=== PATIENT | male | born 1930 | race Asian ===

== ENCOUNTER → 2019-04-03 | Outpatient (CLI) | payer OTHER | END | disposition home or self-care (01) | LOC: ROC 07:21 | PROVIDERS: ATTEND Radiology Radiation Oncology | DX: Z86.69 Personal history of other diseases of the nervous system and sense organs (principal); Z08 Encounter for follow-up examination after completed treatment for malignant neoplasm | CPT/HCPCS: 99214; G0463 ==

== ENCOUNTER 2019-04-14 13:33 | Outpatient (CLI) | payer OTHER ==
[2019-04-14] MEDS ORDERED: GADOBUTROL 7.5 MMOL/7.5 ML PFS ONE (14:54)
== END 2019-04-14 23:59 | disposition home or self-care (01) ==
LOC: CFH 13:33
PROVIDERS: ATTEND Radiology Radiation Oncology
DX: G31.9 Degenerative disease of nervous system, unspecified (principal); J32.2 Chronic ethmoidal sinusitis; M89.8X8 Other specified disorders of bone, other site; I10 Essential (primary) hypertension
CPT/HCPCS: 70553; A9585